=== PATIENT | female | born 1990 | race African-American/Black ===

== ENCOUNTER → 2020-11-10 | Outpatient (CLI) | payer SELFPAY ==
--- NOTE | 2020-11-10 09:18 | RADIOLOGY REPORT (SQ) ---
EXAM DESCRIPTION: U/S [id number] TRNABD 1GES W/ODOP IMAGES COMPLETED DATE/TIME: 11/10/2020 8:58 am REASON FOR STUDY: (Z34.01)ENCNTR FOR SUPRVSN OF NORMAL FIRST PREG, FIRST TRIMESTER Z34.01 ENCNTR FO R SUPRVSN OF NORMAL FIRST PREG, FIRST TRIMES COMPARISON: None. TECHNIQUE: Transabdominal static and realtime grayscale images acquired of the pelvis. Additional se lected spectral and color Doppler images recorded. All images stored on PACs. bHCG: Not applicable. CLINICAL DATES: 9 week 6 day. LIMITATIONS: None. FINDINGS: FETUS: Single Living intrauterine . ULTRASOUND EGA: 10 week 4 day. ULTRASOUND SHAYY: 06/04/2021. EFW: Not applicable less than 20 weeks. CRL: 3.73 cm. FHR: 158 beats per minute. SURVEY: No visualized anomalies. AMNIOTIC FLUID: Adequate amount. PLACENTA: Not yet developed due to early gestation. SUBCHORIONIC BLEED: No. SIZE OF BLEED: Not applicable. UTERUS: Multiple fibroids, the largest measuring 2.4 cm and 4.5 cm. CERVICAL LENGTH: 2.6 cm. Closed. RIGHT ADNEXA: Ovary not identified due to poor acoustical window. No adnexal free fluid. No adnexal masses. LEFT ADNEXA: Normal ovary with normal vascular flow. No adnexal free fluid. No adnexal masses. FREE FLUID: None. OTHER: No other significant finding. IMPRESSION: LIVING INTRAUTERINE . EGA 10 WEEK 4 DAY. MULTIPLE UTERINE FIBROIDS. Trimester of : First trimester - 0 to 13 weeks. TECHNICAL DOCUMENTATION: JOB ID: [id number] [email or web address]- All Rights Reserved Reading location - IP/workstation name: [email or web address]
== END ==
LOC: RAD 08:22
PROVIDERS: ATTEND Midwife
DX: O34.11 Maternal care for benign tumor of corpus uteri, first trimester (principal); D25.9 Leiomyoma of uterus, unspecified; Z3A.10 10 weeks gestation of pregnancy
CPT/HCPCS: 76801